=== PATIENT | male | born 1940 | race Caucasian/White ===

== ENCOUNTER 2022-10-13 11:15 | Observation (INO) ==
[2022-12-29] MEDS ORDERED: NAROPIN 0.75% EPI ONE (09:16)
[2022-12-29] MEDS ORDERED: BYFAVO INJ IVP ONE (09:16)
[2022-12-29] MEDS ORDERED: DIPRIVAN VIAL 20 ML ONE (09:22)
[2022-12-29] MEDS ORDERED: PEPCID 20 MG VIAL ONE (09:24)
[2022-12-29] MEDS ORDERED: ZOFRAN INJ 4 MG VIAL ONE (09:24)
[2022-12-29] MEDS ORDERED: ZEMURON 100 MG VIAL ONE (09:24)
[2022-12-29] MEDS ORDERED: FENTANYL VIAL INJ 100 mcg ONE (09:26)
[2022-12-29] MEDS ORDERED: ANCEF VIAL 1 GRAM ONE (09:28)
[2022-12-29] MEDS ORDERED: NS 100 ML IV 100 ML ONE (09:28)
[2022-12-29] MEDS ORDERED: LR 1,000 ML IV 1,000 ML IV ONE (09:28)
[2022-12-29] MEDS ORDERED: BREVIBLOC ONE (09:31)
[2022-12-29] MEDS ORDERED: MARCAINE 0.5% ONE (09:49)
[2022-12-29] MEDS ORDERED: BRIDION ONE (10:12)
[2022-12-29] MEDS ORDERED: SUPRANE ONE (10:16)
[2022-12-29 10:24] VITALS: BMI 29.0
[2022-12-29] MEDS ORDERED: EPHEDRINE SULFATE INJ ONE (10:34)
[2022-12-29] MEDS ORDERED: OFIRMEV IV 1000 MG VIAL 1,000 MG/100 ML VIAL IV ONE (11:09)
[2022-12-29] MEDS ORDERED: DILAUDID INJ ONE (12:03)
[2022-12-29] MEDS ORDERED: ZOFRAN INJ 4 MG VIAL IVP PRN ×2 (13:28→13:29)
[2022-12-29] MEDS ORDERED: TYLENOL 325 MG TAB PO PRN (13:28)
[2022-12-29] MEDS ORDERED: BENADRYL INJ 50 MG VIAL IVP PRN (13:29)
[2022-12-29] MEDS ORDERED: REGLAN INJ 10 MG VIAL IVP PRN (13:29)
[2022-12-29] MEDS ORDERED: DILAUDID INJ IVP PRN (13:29)
[2022-12-29] MEDS ORDERED: BARHEMSYS INJ IVP PRN (13:29)
[2022-12-29] MEDS: DILAUDID INJ IVP PRN (19:38)
[2022-12-29] MEDS: COLACE CAP 100 MG PO SCH (20:41)
[2022-12-29] MEDS: PERCOCET TAB 5/325 MG PO PRN (22:56)
[2022-12-30] MEDS: DILAUDID INJ IVP PRN ×2 (01:02→04:22)
[2022-12-30] MEDS: PERCOCET TAB 5/325 MG PO PRN ×6 (03:15→22:50)
[2022-12-30 06:41] LABS: BASOPHILS % (AUTO) 0.4 % (0.2-1.0); EOSINOPHILS # (AUTO) 0.1 x10^3/uL (0.0-0.2); EOSINOPHILS % (AUTO) 1.6 % (0.9-2.9); HEMATOCRIT 39.5 % (42.0-54.0); HEMOGLOBIN 13.1 g/dL (13.5-18.0); LYMPHOCYTES # (AUTO) 1.4 X10^3/uL (1.3-2.9); LYMPHOCYTES % (AUTO) 18.6 % (21.0-51.0); MEAN CORPUSCULAR HEMOGLOBIN 30.5 pg (27.0-34.0); MEAN CORPUSCULAR HGB CONC 33.1 g/dL (33.0-35.0); MEAN CORPUSCULAR VOLUME 92.1 fL (80.0-100.0); MONOCYTES # (AUTO) 0.9 x10^3/uL (0.3-0.8); MONOCYTES % (AUTO) 12.2 % (0.0-13.0); NEUTROPHILS % (AUTO) 67.2 % (42.0-75.0); RED BLOOD COUNT 4.29 X10^6/uL (4.7-6.0); RED CELL DISTRIBUTION WIDTH 14.1 % (11.6-16.5); WHITE BLOOD COUNT 7.4 X10^3/uL (3.6-10.0)
--- NOTE | 2022-12-30 06:53 | NOTE.SOAP ---
Soap Note Note for Day of Date of Exam: 12/30/22 Subjective Data Subjective Data: This is an 82 yo male who presented to the hospital yesterday for a right total ankle replacement surgery and was then admitted for post operative pain control by the internal medicine team. Patient is seen bedside this morning with daughter. Patient states he has had pain up to an 8 or even 9 at points out of 10 last night. He state he has been taking his pain medication IV and PO around the clock. Patient's daughter states he also has a lot of anxiety about pain. Denies f,c,n,v,sob, and cp at time of interview. Objective Data Objective Data: Lower extremity focused exam: Posterior splint in place, clean dry and intact. Digits warm, able to wiggle. Pain free ROM of knee. No signs of DVT or compart ment syndrome. NV status unchanged from surgery yesterday. Pain on palpation of surgical sites. Assessment Assessment: -S/p right total ankle replacement, prophylactic medial malleolus fixation, and hardware removal (DOS 2) Plan Plan: -Patient evaluated and chart reviewed. -Okay for DC from foot and ankle POV when medically cleared. -Will try to work to wean IV pain medications this morning and start POs only - percocet and tylenol (up to 4000mg / day). -Ice and elevation to operative limb, this will help limit swelling which will help limit pain. -Prescriptions, DME Rx, post op instructions, and follow up appt card in chart, to be given when DC'd. -NWB to operative foot. -Will follow while in house.
[2022-12-30 07:17] LABS: ALANINE AMINOTRANSFERASE 25 Units/L (12-78); ALBUMIN 3.6 g/dL (3.4-5.0); ALKALINE PHOSPHATASE 52 Units/L (46-116); ASPARTATE AMINO TRANSFERASE 26 Units/L (15-37); BLOOD UREA NITROGEN 11 mg/dL (7-18); CALCIUM 9.1 mg/dL (8.5-10.1); CARBON DIOXIDE 32.8 mmol/L (21-32); CHLORIDE 104 mmol/L (98-107); COR NA(FOR HYPERGLY) 143 mmol/L (136-145); CREATININE 0.98 mg/dL (0.70-1.30); SODIUM 143 mmol/L (136-145); TOTAL PROTEIN 6.7 g/dL (6.4-8.2); eGFR NON BLACK RACES > 60 (>60)
[2022-12-30] MEDS: LOVENOX INJ 40 MG SYR SC SCH (09:32)
[2022-12-30] MEDS: TYLENOL 325 MG TAB PO SCH ×4 (09:33→20:23)
[2022-12-30] MEDS ORDERED: ZOFRAN TAB 4 MG PO ONE (16:17)
[2022-12-30] MEDS ORDERED: ZOFRAN INJ 4 MG VIAL IVP ONE (16:21)
--- NOTE | 2022-12-30 17:46 | RAD ---
CHEST, 1 VIEWHISTORY: LOW GRADE FEVEER, POST OP ANKLE SURGERYStudy: Single view of the chest.Comparison:NoneFindings:The cardiomediastinal silhouette is normal.No focal consolidations, pleural effusions or pneumothorax. Osseous structures demonstrate no acute abnormality.IMPRESSION:1. No acute cardiopulmonary process.Electronically signed by: YANETH MYLES (Dec 30, 2022 17:44:34)
[2022-12-30] MEDS: COLACE CAP 100 MG PO SCH (21:24)
[2022-12-31] MEDS: PERCOCET TAB 5/325 MG PO PRN ×2 (02:57→08:59)
[2022-12-31] MEDS: TYLENOL 325 MG TAB PO SCH ×3 (05:00→08:57)
[2022-12-31 06:42] LABS: BASOPHILS % (AUTO) 0.4 % (0.2-1.0); EOSINOPHILS # (AUTO) 0.2 x10^3/uL (0.0-0.2); EOSINOPHILS % (AUTO) 2.8 % (0.9-2.9); HEMATOCRIT 37.2 % (42.0-54.0); HEMOGLOBIN 12.6 g/dL (13.5-18.0); LYMPHOCYTES # (AUTO) 1.7 X10^3/uL (1.3-2.9); LYMPHOCYTES % (AUTO) 23.2 % (21.0-51.0); MEAN CORPUSCULAR HEMOGLOBIN 30.8 pg (27.0-34.0); MEAN CORPUSCULAR HGB CONC 33.8 g/dL (33.0-35.0); MEAN CORPUSCULAR VOLUME 91.3 fL (80.0-100.0); MONOCYTES # (AUTO) 0.9 x10^3/uL (0.3-0.8); MONOCYTES % (AUTO) 12.2 % (0.0-13.0); NEUTROPHILS # (AUTO) 4.6 x10^3/uL (2.2-4.8); NEUTROPHILS % (AUTO) 61.4 % (42.0-75.0); RED BLOOD COUNT 4.07 X10^6/uL (4.7-6.0); RED CELL DISTRIBUTION WIDTH 14.2 % (11.6-16.5); WHITE BLOOD COUNT 7.5 X10^3/uL (3.6-10.0)
[2022-12-31] MEDS: LOVENOX INJ 40 MG SYR SC SCH (08:59)
[2022-12-31 12:07] VITALS: BP 122/73
== END 2022-12-31 11:30 | disposition home or self-care (01) ==
LOC: MED/SURG
PROVIDERS: ADMIT Obstetrics & Gynecology Obstetrics; ATTEND Obstetrics & Gynecology Obstetrics
DX: T84.84XA Pain due to internal orthopedic prosthetic devices, implants and grafts, initial encounter; M12.571 Traumatic arthropathy, right ankle and foot